=== PATIENT | male | born 1960 | race Two or more races ===

== ENCOUNTER 2019-01-13 08:56 | Outpatient (CLI) | payer OTHER | END 2019-01-13 09:04 | disposition home or self-care (01) | LOC: RAD 501 08:56 | DX: M25.551 Pain in right hip (principal); M25.552 Pain in left hip ==

== ENCOUNTER 2020-01-05 08:44 | Outpatient (CLI) | payer OTHER | END 2020-01-05 08:54 | disposition home or self-care (01) | LOC: RAD 08:44 | DX: M25.551 Pain in right hip (principal); M25.552 Pain in left hip; Z96.641 Presence of right artificial hip joint ==

== ENCOUNTER → 2020-01-07 06:24 | Outpatient (CLI) | payer OTHER ==
[~2020-01-07 06:24] MED LIST: ASPIR 8181 MG PO; FINASTERIDE5 MG PO; TAMS0.4C PO
== END | disposition home or self-care (01) ==
LOC: LAB 06:24
PROVIDERS: ATTEND Orthopaedic Surgery
DX: D64.89 Other specified anemias (principal); E88.89 Other specified metabolic disorders; D68.8 Other specified coagulation defects; N39.0 Urinary tract infection, site not specified; Z22.322 Carrier or suspected carrier of Methicillin resistant Staphylococcus aureus; I10 Essential (primary) hypertension; I49.8 Other specified cardiac arrhythmias; Z76.89 Persons encountering health services in other specified circumstances

== ENCOUNTER 2020-01-12 17:02 | Inpatient (IN) | payer OTHER ==
[~2020-01-12] VITALS: Ht 185.4 cm; Wt 95.3 kg
== END 2020-01-19 16:25 | disposition home or self-care (01) | DRG 470 ==
LOC: SURH 01-17 07:00 → O/R 01-17 08:54 → SURH 01-17 09:15
PROVIDERS: ADMIT Orthopaedic Surgery; ATTEND Orthopaedic Surgery
PROC: 0SRB02Z Replacement of Left Hip Joint with Metal on Polyethylene Synthetic Substitute, Open Approach (ICD-10-PCS; principal; 2020-01-17 09:15)
DX: M16.12 Unilateral primary osteoarthritis, left hip (principal); D62 Acute posthemorrhagic anemia; Z96.642 Presence of left artificial hip joint; Z96.641 Presence of right artificial hip joint

== ENCOUNTER 2021-01-11 13:42 | Outpatient (CLI) | payer OTHER | END 2021-01-11 13:48 | disposition home or self-care (01) | LOC: NUCLEAR 13:42 | PROVIDERS: ATTEND Orthopaedic Surgery | DX: M81.0 Age-related osteoporosis without current pathological fracture (principal) ==

== ENCOUNTER 2021-01-11 15:29 | Outpatient (CLI) | payer OTHER | END 2021-01-11 15:40 | disposition home or self-care (01) | LOC: RAD 15:29 | PROVIDERS: ATTEND Orthopaedic Surgery | DX: M16.0 Bilateral primary osteoarthritis of hip (principal) ==

== ENCOUNTER 2021-01-18 10:05 | Outpatient (CLI) | payer OTHER | END 2021-01-18 10:15 | disposition home or self-care (01) | LOC: RAD 10:05 | PROVIDERS: ATTEND Orthopaedic Surgery | DX: M25.561 Pain in right knee (principal) ==